=== PATIENT | female | born 1975 | race American Indian/Alaskan Native ===

== ENCOUNTER 2017-09-01 09:19 | Outpatient (CLI) | payer OTHER ==
--- NOTE | 2017-09-01 10:21 | XRay Report ---
LEFT HAND RADIOGRAPHS INDICATION: Limited mobility left hand, weakness in left arm. COMPARISON: None similar at this institution. FINDINGS: AP and lateral left hand radiographs demonstrate intact bony articulation. No suspicious erosions, though subtle/early interphalangeal joint degenerative spurring may be developing. Unremarkable soft tissues. CONCLUSION: No acute left hand radiographic abnormality, as described. Please correlate. Thank you for the opportunity to participate in this patient's care.
--- NOTE | 2017-09-01 10:28 | XRay Report ---
LEFT WRIST RADIOGRAPHS INDICATION: Limited mobility in left hand, weakness in left arm. COMPARISON: None similar. FINDINGS: AP and lateral left wrist radiographs, 2 projections demonstrate intact carpal rows and also remainder imaged bones. Unremarkable soft tissues. CONCLUSION: Normal left wrist radiographs, as described. Thank you for the opportunity to participate in this patient's care.
== END 2017-09-01 09:20 | disposition home or self-care (01) ==
LOC: XRAY 09:19
PROVIDERS: ATTEND Internal Medicine
DX: R53.1 Weakness (principal); Z74.09 Other reduced mobility